=== PATIENT | male | born 1965 | race Caucasian/White ===

== ENCOUNTER 2019-10-22 09:32 | Emergency (ER) | payer OTHER, SELFPAY ==
--- NOTE | ~2019-10-22 | XR_ITS ---
EXAMINATION: XR ankle LT min 3V EXAM DATE: 10/22/2019 10:17 INDICATION: Initial encounter following injury, with pain of the left ankle. Stepped on rock 2 weeks ago. TECHNIQUE: Left ankle frontal, lateral and oblique projections obtained and reviewed. There is no pr ior study for comparison. FINDINGS: The left ankle mortise appears intact. Sequela from an old medial malleolar avulsion inj ury. There are no acute fractures or dislocations identified. There is no subcutaneous gas. Possibl e ankle joint effusion. Small calcaneal inferior spur. There are no radiopaque foreign bodies. IMPRESSION: 1. Possible ankle joint effusion. 2. No acute osseous findings. Reviewed, dictated and finalized at location A.
[2019-10-22 09:37] VITALS: BP 180/104; PULSE 112; RESP 18; TEMP 36.6; O2SAT 98
[2019-10-22] MEDS: INDOMETHACIN 25 MG CAPSULE 50 MG PO (10:51)
--- NOTE | 2019-10-22 10:51 | PC.NURSE ---
Crackers given to patient with indomycin per EDP reqest.
--- NOTE | 2019-10-22 11:19 | ED.EXTPRO ---
HPI - Extremity Problem General Chief complaint: Extremity Injury, Lower Stated complaint: left ankle pain Time Seen by Provider: 10/22/19 09:49 Source: patient Mode of arrival: ambulatory Limitations: no limitations History of Present Illness HPI Narrative: Patient is a 54-year-old male who presents to the emergency department with complaint of left ankle pain and swelling. Patient states he twisted his left ankle when he stepped on a rock couple of weeks ago. He denies having had any follow-up but did notice some mild pain to his left ankle. Patient states for the first couple of days it really did not bother him much. He states a couple days later he noticed increased pain and swelling to his left ankle. He states it has been intermittent in terms of intensity feeling better at times and feeling worse at others. Patient has occasionally taken Naprosyn and last night took ibuprofen, but has not taken this consistently. Patient does report history of gout in his right foot in the past. MD Complaint: joint swelling and joint paint Onset (ago): week(s) (2) Pain Consistency: constant Location: left and lower extremity Exacerbating factors: range of motion, weight bearing, walking and palpation Associated symptoms: denies other symptoms Context: history of gout Related Data Allergies Allergy/AdvReac Type Severity Reaction Status Date / Time No Known Allergies Allergy Verified 10/22/19 09:40 Review of Systems Review of Systems: All systems reviewed & are unremarkable except as noted in HPI and below Musculoskeletal: Musculoskeletal: Reports no additional musculoskeletal complaints and Reports as per HPI PMFSH Past Medical History Medical History (Updated 10/22/19 @ 11:36 by Nevaeh Montoya MD) Gout Hypertension Social History Social History (Updated 10/22/19 @ 11:34 by Nevaeh Montoya MD) Smoking status: Former smoker Gender identity (if verbalized by the patient): Male Exam Const: General: cooperative, no acute distress and alert Nutritional Appearance: well nourished Orientation/consciousness: patient oriented x3 Limitations: no limitations Resp: Effort & Inspection: normal respiratory effort Auscultation: clear to auscultation bilaterally Cardio: Rate: regular rate Rhythm: regular rhythm Skin: General skin exam: normal color Neuro: General: patient oriented x3 Cognition (Neuro): normal cognition Speech: normal speech Extrem: Right lower extremity: ankle Details: tenderness Location: other (Diffuse with minimal palpation), swelling Details: diffusely and other (Faint erythema diffusely left ankle); no unusual warmth Psych: Mental Status: mental status grossly normal Affect: normal affect Attitude: cooperative Course Course Emergency Course: Patient exam most consistent with gout. Patient has tenderness with minimal palpation, faint erythema, and notable ankle joint swelling. No evidence of fracture noted on x-ray, but effusion is present. Patient with known history of gout. Will treat with gout medications and advised primary care follow-up. Vital Signs Vital signs: Vital Signs Temperature 97.8 F 10/22/19 09:37 Pulse Rate 112 H 10/22/19 09:37 Respiratory Rate 18 10/22/19 09:37 Blood Pressure 180/104 H 10/22/19 09:37 Pulse Oximetry 98 10/22/19 09:37 Temperature 97.8 F 10/22/19 09:37 Pulse Rate 112 H 10/22/19 09:37 Respiratory Rate 18 10/22/19 09:37 Blood Pressure 180/104 H 10/22/19 09:37 Pulse Oximetry 98 10/22/19 09:37 MDM - Extremity (Nontraumatic) Imaging Data Radiologist's impression: ITS Impressions Ankle X-Ray 10/22/19 10:32 IMPRESSION: 1. Possible ankle joint effusion. 2. No acute osseous findings. Critical Care Time Critical Care Time Critical Care Time: No Discharge Plan Discharge Clinical Impression: Acute gouty arthritis Patient Disposition: Home, Self-Care Condition: Stable Instructi
[2019-10-22] MEDS: COLCHICINE 0.6 MG TABLET 1.2 MG PO (11:28)
== END 2019-10-22 11:47 | disposition home or self-care (01) ==
PROVIDERS: Emergency Provider Emergency Medicine; PCP Internal Medicine
DX: M10.9 Gout, unspecified (principal); I10 Essential (primary) hypertension; Z87.891 Personal history of nicotine dependence
CPT/HCPCS: 73610; 99283; A9270

== ENCOUNTER 2022-02-18 07:34 | Outpatient (CLI) | payer OTHER, SELFPAY ==
--- NOTE | 2022-03-04 00:36 | WPDHOMESLEEP ---
Sleep Study - Home Unattended Date of Study: 02/18/22 Ordering Provider: ERWIN RomeroC Interpreting Provider: Juana Estrada, DO Home Sleep Study Type: Watch PAT Height: 1.93 m Weight: 114.759 kg Body Mass Index: 30.8 Neck Circumference (inches): 18.25 [place]: 17 Reason for Sleep Study Loud snoring, unrefreshing sleep Sleep History The patient is a 56-year-old male with hypertension, gout, lower extremity paresthesias and history of tobacco use that had a sleep study ordered his primary care for evaluation of sleep apnea. The patient occasionally awakens from sleep short of breath. He rarely awakens at night with heartburn, belching or cough. He constantly snores loud enough that others complain. He rarely has trouble sleeping when he has a cold. He rarely wakes up gasping for air throughout the night. He constantly has breathing problems at night observed by himself or others. He rarely sweats excessively at night. He rarely has heart palpitations or irregular heartbeats during the night. He rarely falls asleep during the day but will occasionally fall asleep while driving. He denies cataplexy. He occasionally has trouble at school or work due to sleepiness. He rarely feels unable to move when waking up or falling asleep. He rarely experiences vivid dreamlike scenes upon awakening or falling asleep. He rarely feels afraid when asleep. He rarely has nightmares but will occasionally remembers his dreams. He occasionally has thoughts racing through his mind. He occasionally feels sad, depressed and anxious. He frequently has muscular tension. He frequently notices parts of his body jerk. He occasionally kicks during the night. He constantly has crawling and aching feelings in his legs as well as leg pain during the night. He frequently grind his teeth during sleep and occasionally awakens with morning jaw pain. He is occasionally bothered by pain during the day and occasionally awakened by pain during the night. He frequently wakes up feeling stiff in the morning. He frequently wakes up with sore or achy muscles. He frequently wakes up with pain in the neck, spine or other joints. He goes to bed at 10:00 p.m. on weekdays and between 10:00 p.m. and midnight on the weekends. He is able to fall asleep within 15 minutes. He wakes up 3 times throughout the night to urinate. He is able fall back asleep within 30 minutes. He wakes up at 6:30 a.m. on weekdays and at 8:30 a.m. on the weekends. Typically gets 5-7 hours of sleep per night. He does not stay in bed after waking up in the morning. He currently lives with his and 17-year-old son. He does not consume any caffeinated beverages within 2 hours of bedtime. He does not engage in physical exercise before bedtime. He will watch television before falling asleep. He will take naps in the afternoon or the evening but they are not refreshing. He does not consume any caffeinated beverages throughout the day. He is a former smoker. He drinks 6 alcoholic beverages per day. He denies recreational drug use. [facility]LY [facility] Past Medical History Medical History (Updated 03/04/22 @ 00:45 by Juana Estrada DO) Essential hypertension Gout Mixed hyperlipidemia Family History Family History Mother Patient's mother is in good health Father Patient's father is in good health Sibling Patient's sister is in good health Patient's brother is in good health Social History Social History Smoking packs per day: 2 Smoking cigarettes per day: 40.0 Years smoked: 30 Smoking pack-years: 60.00 Smoking status: Former smoker Tobacco type: cigarettes Second hand tobacco smoke exposure: No Smoking end date: 07/05/14 Alcohol intake: current Drinks per week: 30 Alcohol use details: beer Substance use: never Substance use type: does not
[2022-03-04 00:48] VITALS: BMI 30.8
== END 2022-02-19 11:51 | disposition home or self-care (01) ==
PROVIDERS: PCP Internal Medicine; Visit Provider Nurse Practitioner
DX: G47.33 Obstructive sleep apnea (adult) (pediatric) (principal)
CPT/HCPCS: 95800

== ENCOUNTER 2024-11-15 00:21 | Day surgery (SDC) | payer OTHER, SELFPAY ==
[2024-11-07 13:32] VITALS: BMI 32.3
--- OUTSIDE RECORDS SUMMARY | 2024-11-15 00:23 | XMS_ITS | Clinical Summary ---
Author Organization [facility] Address [address] [place] [id number] Care Team Providers Care Branch Customer Service Representative Name Role Phone Adan Freed DO Primary Care Provider [phone] Social History Tobacco Use Types Packs/Day Years Used Date Smoking Tobacco: Never Assessed Sex and Gender Information Value Date Recorded Sex Assigned at Not on file Legal Sex Male 7:05 PM CDT Gender Identity Not on file Sexual Orientation Not on file Plan of Treatment Health Maintenance Due Date Last Done Comments Colorectal Cancer Screening Colonoscopy (10 Years) 1965 Annual Physical 1968 Hepatitis C 1983 DTaP, Tdap and Td Vaccines ( 1 - Tdap) 1984 Pneumococcal Vaccine: 50+ Ye ars (1 of 1 - PCV) 2015 Zoster Vaccines (1 of 2) 2015 COVID-19 Vaccine ( - 2023-2 5 season) 2024 Meningococcal B Vaccine Aged Out No l onger eligible based on patient's age to complete this topic Meningococcal Vaccine Aged Out No santa sole eligible based on patient's age to complete this topic RSV Immunizations Under 20 Months Aged Out No longer eligible based on patient's age to complete [place] [address] [place] [address] [employer] Care Teams Branch Customer Service Representative Relationship Specialty Start Date End Date Adan Freed DO [address] [id number] PCP - General INTERNAL MEDICINE 04/13/19
[2024-11-15 06:44] VITALS: BP 150/85; PULSE 87; RESP 18; TEMP 36.5; O2SAT 99
[2024-11-15] MEDS: LACTATED RINGERS 1,000 ML 150 ML IV CONT (07:01)
--- NOTE | 2024-11-15 07:14 | P.PNAN_ITS ---
Anes - Initial Pre Proc Eval Procedure: Operation Date: 11/15/24 08:00 Proposed Procedures p Colonoscopy - Td Perez MD Date/Time: 11/15/24 07:14 Surgeon: Td Perez MD Pre Op Diagnosis: Personal history of colon polyps, unspecified Patient Data Age: 59 Gender: M Height: 1.93 m Weight: 120.3 kg Last Vital Signs Temp 36.5 C 11/15/24 06:44 Pulse 87 11/15/24 06:44 Resp 18 11/15/24 06:44 BP 150/85 H 11/15/24 06:44 Pulse Ox 99 11/15/24 06:44 O2 Del Method Room Air 11/15/24 06:44 Allergies Allergy/AdvReac Type Severity Reaction Status Date / Time No Known Allergies Allergy Verified 11/15/24 06:50 Home Medications Medication Instructions Recorded Confirmed Type allopurinol 100 mg tablet 200 mg (2 x 100 mg) PO DAILY #180 03/28/24 11/15/24 Rx tabs sildenafil 100 mg tablet 100 mg PO DAILY PRN sexual 07/07/24 11/07/24 Rx activity #30 tabs lisinopril 20 mg tablet 20 mg PO DAILY #90 tabs 09/12/24 11/15/24 Rx Patient hx anesthesia problems: none Family hx anesthesia problems: none Results Review: All pre-operative results and documents have been reviewed as part of the pre- operative evaluation. [facility] Past Medical History Medical History Essential hypertension Mixed hyperlipidemia Gout Family History Family History Mother Patient's mother is in good health Father Patient's father is in good health Sibling Patient's sister is in good health Patient's brother is in good health Social History Social History Smoking packs per day: 2 Smoking cigarettes per day: 40.0 Years smoked: 30 Smoking pack-years: 60.00 Smoking status: Former smoker Tobacco type: cigarettes Second hand tobacco smoke exposure: No Smoking end date: 07/05/14 Alcohol intake: current Drinks per week: 40 Alcohol use details: beer Substance use: never Substance use type: does not use Lack of Transportation: No Lack of Food: Never True Current Housing: I Have Housing Concerned About Future Housing: No Difficulty Paying Gas/Electric Bills: No Difficulty Paying for Meds: No Currently Unemployed: Decline to Answer Education: High School Diploma/GED Difficulty w/ Childcare or Family Care: YES Living arrangements: with family Gender identity (if verbalized by the patient): Male Spiritual care concerns: No Anes - Eval Final PreProcedure Day of Procedure 11/15/24 07:14 Patient weight: obese Heart: regular rate and rhythm Lungs: clear to auscultation Airway: Mallampati scale class II Neurological: alert and oriented Last oral intake: >/= 8 hours ASA classification: III Emergent: no Anesthetic plan: proceed Anesthesia type and monitoring: general GIVS and standard monitoring Results Review: All pre-operative results and documents have been reviewed as part of the pre- operative evaluation. Informed Consent: The patient's anesthetic plan and its attendant risks and benefits were discussed with the patient/family/POA. Questions were solicited and answers provided to the satisfaction of the patient/family/POA.
--- NOTE | 2024-11-15 07:58 | PM.HPGS ---
History of Present Illness History of Present Illness Consent: Risks, benefits, and alternatives have been discussed and questions answered. Patient agrees to proceed with procedure. Chief complaint: Personal history of colon polyps, unspecified Narrative: Hai Dutta is a 59 year old male with colon polyp in 2018 Review of Systems Review of Systems: All systems reviewed & are unremarkable except as noted in HPI and below PMFSH Past Medical History Medical History Essential hypertension Mixed hyperlipidemia Gout Family History Family History Mother Patient's mother is in good health Father Patient's father is in good health Sibling Patient's sister is in good health Patient's brother is in good health Social History Social History Smoking packs per day: 2 Smoking cigarettes per day: 40.0 Years smoked: 30 Smoking pack-years: 60.00 Smoking status: Former smoker Tobacco type: cigarettes Second hand tobacco smoke exposure: No Smoking end date: 07/05/14 Alcohol intake: current Drinks per week: 40 Alcohol use details: beer Substance use: never Substance use type: does not use Lack of Transportation: No Lack of Food: Never True Current Housing: I Have Housing Concerned About Future Housing: No Difficulty Paying Gas/Electric Bills: No Difficulty Paying for Meds: No Currently Unemployed: Decline to Answer Education: High School Diploma/GED Difficulty w/ Childcare or Family Care: YES Living arrangements: with family Gender identity (if verbalized by the patient): Male Spiritual care concerns: No Meds Home Medications and Allergies Home Medications Medication Instructions Recorded Confirmed Type allopurinol 100 mg tablet 200 mg (2 x 100 mg) PO DAILY #180 03/28/24 11/15/24 Rx tabs sildenafil 100 mg tablet 100 mg PO DAILY PRN sexual 07/07/24 11/07/24 Rx activity #30 tabs lisinopril 20 mg tablet 20 mg PO DAILY #90 tabs 09/12/24 11/15/24 Rx Allergies Allergy/AdvReac Type Severity Reaction Status Date / Time No Known Allergies Allergy Verified 11/15/24 06:50 Vital Signs Vital Signs - 24 hr 11/15/24 06:44 Temperature 97.7 F Pulse Rate 87 Respiratory Rate 18 Blood Pressure 150/85 H Pulse Oximetry 99 Oxygen Delivery Room Air Exam Const: General: comfortable and no acute distress HENMT: Face/Nose/Sinus: Normal nares present Eyes: General: appearance normal, both eyes and all related structures Neck: Neck: no JVD Resp: Auscultation: clear to auscultation bilaterally Cardio: Rate: regular rate Rhythm: regular rhythm GI: Inspection: non-distended GI Palp: Yes Soft to palpation Skin: General skin exam: normal color Neuro: General: gait normal Speech: normal speech Extrem: General: normal to inspection Psych: Mental Status: mental status grossly normal Assessment and Plan Assessment and plan (1) History of colon polyps: Code(s): Z86.010 - Personal history of colon polyps Status: Acute Assessment and Plan: colonoscopy
[2024-11-15 08:20] VITALS: BP 127/80; PULSE 80; RESP 19; O2SAT 98
[2024-11-15 08:30] VITALS: BP 129/85; PULSE 68; RESP 20; O2SAT 98
[2024-11-15 08:40] VITALS: BP 146/77; PULSE 71; RESP 20; O2SAT 97
== END 2024-11-15 08:49 | disposition home or self-care (01) ==
PROVIDERS: PCP Nurse Practitioner; Referring Provider Nurse Practitioner; Visit Provider Internal Medicine Gastroenterology
PROC: 0DJD8ZZ Inspection of Lower Intestinal Tract, Via Natural or Artificial Opening Endoscopic (ICD-10-PCS; CPT 45378; principal; 2024-11-15 08:00)
DX: Z12.11 Encounter for screening for malignant neoplasm of colon (principal); D12.0 Benign neoplasm of cecum; K64.8 Other hemorrhoids; K57.30 Diverticulosis of large intestine without perforation or abscess without bleeding; I10 Essential (primary) hypertension; E78.2 Mixed hyperlipidemia; E66.9 Obesity, unspecified; Z68.32 Body mass index [BMI] 32.0-32.9, adult; Z87.891 Personal history of nicotine dependence
CPT/HCPCS: 45385; 88305; J2003; J2704; J7120